=== PATIENT | female | born 1960 | race Caucasian/White ===

== ENCOUNTER 2021-05-31 08:17 | Day surgery (SDC) | payer OTHER ==
[2021-05-30 13:51] LABS: BLOOD UREA NITROGEN,BUN 17 mg/dL (7.0-18.0); CARBON DIOXIDE,CO2 28.4 mmol/L (21.0-32.0); CHLORIDE,CL 106 mmol/L (98-107); GLUCOSE RANDOM 110 mg/dL (74-106); POTASSIUM,K 5.1 mmol/L (3.5-5.1); SODIUM,NA 142 mmol/L (136-145)
[~2021-05-31 08:17] MED LIST: Bupivacaine 0.25% 10 ML SDV ONE; Fluorescein 5 ML Vial ONE; Ketamine 500 mg/10 ML MDV ONE; Lactated Ringers 1,000 ML IV SCH; Methylene Blue 50 MG/10 ML Ampule ONE; Octyl 2-Cyanoacrylate 1 Tube ONE; Propofol 200 MG/20 ML SDV ONE; Sodium Chloride 0.9% 10 ML SDV IV PRN; Sodium Chloride 0.9% 10 ML Syringe FLUSH PRN; Sodium Chloride 0.9% 2.5 ML Syringe FLUSH PRN; ceFAZolin 2 GM in Premix Bag 1 BAG IV ONE; fentaNYL 250 MCG/5 ML SDV ONE
--- NOTE | 2021-05-31 08:28 | PCM.PREANE ---
Preanesthetic Assessment - Procedure Proposed Procedure: Lap assisted vaginal hysterectomy, Bilateral salpingo-oophorectomy, Cystoscopy - Anesthesia/Transfusion/Family Hx Anesthesia History: Prior Anesthesia Without Reaction Transfusion History: No Prior Transfusion(s) - Review of Systems General: No Symptoms Pulmonary: No Symptoms Cardiovascular: No Symptoms (Afib, HTN) Gastrointestinal: No Symptoms Neurological: Headache (h/o tension LAW and c/o one now) Other: Reports: Anxiety - Physical Assessment NPO Status Date: 05/30/21 NPO Status Time: 22:00 Height: 5 ft 6.5 in Weight: 129.274 kg ASA Class: 3 Mental Status: Alert & Oriented x3 Airway Class: Mallampati = 2 Dentition: Reports: Normal Dentition Thyro-Mental Finger Breadths: 3 Mouth Opening Finger Breadths: 3 ROM/Head Extension: Full Lungs: Clear to Auscultation, Normal Respiratory Effort Cardiovascular: Regular Rate, Regular Rhythm - Lab Values: Laboratory Last Values WBC 5.87 K/uL (4.0-11.0) 05/30/21 11:55 RBC 4.81 M/uL (4.30-5.90) 05/30/21 11:55 Hgb 14.1 g/dL (12.0-16.0) 05/30/21 11:55 Hct 41.9 % (36.0-46.0) 05/30/21 11:55 MCV 87.1 fL (80.0-98.0) 05/30/21 11:55 MCH 29.3 pg (27.0-32.0) 05/30/21 11:55 MCHC 33.7 g/dL (31.0-37.0) 05/30/21 11:55 RDW Std Deviation 44.8 fl (28.0-62.0) 05/30/21 11:55 RDW Coeff of Alexsander 14 % (11.0-15.0) 05/30/21 11:55 Plt Count 206 K/uL (150-400) 05/30/21 11:55 MPV 11.10 fL (7.40-12.00) 05/30/21 11:55 Nucleated RBC % 0.0 /100WBC 05/30/21 11:55 Nucleated RBCs # 0 K/uL 05/30/21 11:55 Sodium 142 mmol/L (136-145) 05/30/21 11:55 Potassium 5.1 mmol/L (3.5-5.1) 05/30/21 11:55 Chloride 106 mmol/L (98-107) 05/30/21 11:55 Carbon Dioxide 28.4 mmol/L (21.0-32.0) 05/30/21 11:55 BUN 17 mg/dL (7.0-18.0) 05/30/21 11:55 Creatinine 0.8 mg/dL (0.6-1.0) 05/30/21 11:55 Est Cr Clr Drug Dosing 69.58 mL/min 05/30/21 11:55 Estimated GFR (MDRD) > 60.0 ml/min 05/30/21 11:55 Glucose 110 mg/dL (74-106) H 05/30/21 11:55 Calcium 10.2 mg/dL (8.5-10.1) H 05/30/21 11:55 HCG, Quant 1.0 mIU/mL 05/30/21 11:55 Blood Type A POSITIVE 05/30/21 12:00 Antibody Screen NEGATIVE 05/30/21 12:00 - Allergies Allergies/Adverse Reactions: Allergies Allergy/AdvReac Type Severity Reaction Status Date / Time No Known Allergies Allergy Verified 05/27/21 11:04 - Acknowledgements Anesthesia Type Planned: General Anesthesia Pt an Appropriate Candidate for the Planned Anesthesia: Yes Alternatives and Risks of Anesthesia Discussed w Pt/Guardian: Yes Pt/Guardian Understands and Agrees with Anesthesia Plan: Yes PreAnesthesia Questionnaire HEENT History: Reports: Other (See Below) Other HEENT History: reading glasses Cardiovascular History: Reports: Afib, Hypertension Respiratory History: Reports: None Gastrointestinal History: Reports: None Genitourinary History: Reports: Renal Calculus 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: Musculoskeletal History: Reports: None Neurological History: Reports: Migraines Psychiatric History: Reports: Anxiety Endocrine/Metabolic History: Reports: Obesity/BMI 30+, Osteopenia Hematologic History: Reports: None Immunologic History: Reports: None Oncologic (Cancer) History: Reports: None Dermatologic History: Reports: None - Past Surgical History Head Surgeries/Procedures: Reports: None HEENT Surgical History: Reports: Adenoidectomy, Tonsillectomy Cardiovascular Surgical History: Reports: None Respiratory Surgical History: Reports: None GI Surgical History: Reports: Other (See Below) Other GI Surgeries/Procedures: hx pilonidal cyst excision Female Surgical History: Reports: Breast Biopsy Endocrine Surgical History: Reports: None Neurological Surgical History: Reports: None Musculoskeletal Surgical History: Reports: None Oncologic Surgical History: Reports: None Dermatological Surgical History: Reports: None - SUBSTANCE USE Tobacco Use Status *Q: Never Tobacco User Recreational Drug Use History: No - HOME MEDS Home Medications: Home Meds Ascorbic Acid [Vitamin C] 500 mg PO DAILY 05/27/21 [History] Calcium Carbonate [Calcium] 1 tab PO ASDIRECTED 05/27/21 [History] Cholecalciferol (Vitamin D3) [Vitamin D3] 1,000 mg PO DAILY 05/27/21 [History] Losartan [Cozaar] 50 mg PO DAILY 05/27/21 [History] Maxalt 10 mg PO ASDIRECTED PRN 05/27/21 [History] dilTIAZem HCL [Diltiazem 24Hr ER] 180 mg PO DAILY 05/27/21 [History] Aspirin [Adult Aspirin Regimen] 81 mg PO DAILY 05/28/21 [History] Ibuprofen [Advil] 1 tab PO ASDIRECTED PRN 05/28/21 [History] - CURRENT (IN HOUSE) MEDS Current Meds: Current Medications Lactated Ringer's (Ringers, Lactated) 1,000 mls @ 100 mls/hr IV ASDIRECTED RENATE Sodium Chloride (Sodium Chloride 0.9% 10 Ml Syringe) 10 ml FLUSH ASDIRECTED PRN PRN Reason: Keep Vein Open Sodium Chloride (Sodium Chloride 0.9% 2.5 Ml Syringe) 2.5 ml FLUSH ASDIRECTED PRN PRN Reason: Keep Vein Open Sodium Chloride (Sodium Chloride 0.9% 10 Ml Sdv) 10 ml IV ASDIRECTED PRN PRN Reason: IV Use Discontinued Medications Bupivacaine HCl (Bupivacaine 0.25% 10 Ml Sdv) Confirm Administered Dose 20 ml .ROUTE .STK-MED ONE Stop: 05/31/21 07:34 Fentanyl (Fentanyl 250 Mcg/5 Ml Sdv) Confirm Administered Dose 250 mcg .ROUTE .STK-MED ONE Stop: 05/31/21 07:40 Fluorescein Sodium (Fluorescein 5 Ml Vial) Confirm Administered Dose 5 ml .ROUTE .STK-MED ONE Stop: 05/31/21 07:35 Cefazolin Sodium/Dextrose 2 gm (/ Premix) 50 mls @ 100 mls/hr IV ONETIME ONE Stop: 05/31/21 05:29 Ketamine HCl (Ketamine 500 Mg/10 Ml Mdv) Confirm Administered Dose 500 mg .ROUTE .STK-MED ONE Stop: 05/31/21 07:40 Methylene Blue (Methylene Blue 50 Mg/10 Ml Ampule) Confirm Administered Dose 50 mg .ROUTE .STK-MED ONE Stop: 05/31/21 07:34 Octyl Cyanoacrylate (Octyl 2-Cyanoacrylate 1 Tube) Confirm Administered Dose 1 applic .ROUTE .STK-MED ONE Stop: 05/31/21 07:34 Propofol (Propofol 200 Mg/20 Ml Sdv) Confirm Administered Dose 200 mg .ROUTE .STK-MED ONE Stop: 05/31/21 07:40
[2021-05-31] MEDS ORDERED: Bupivacaine 0.25% 10 ML SDV ONE (08:45)
[2021-05-31] MEDS ORDERED: fentaNYL 250 MCG/5 ML SDV ONE (09:39)
[2021-05-31] MEDS ORDERED: fentaNYL 100 MCG/2 ML SDV ONE ×3 (10:09→11:55)
[2021-05-31] MEDS ORDERED: Morphine 2 MG/ML SYRINGE IVPUSH PRN (10:55)
[2021-05-31] MEDS ORDERED: Ondansetron 4 MG/2 ML SDV IVPUSH PRN ×2 (10:55→13:23)
[2021-05-31] MEDS ORDERED: Albuterol 0.083% 2.5 MG/3 ML Neb Soln NEB PRN (10:55)
[2021-05-31] MEDS ORDERED: Naloxone 0.4 MG/ML SDV IVPUSH PRN (10:55)
[2021-05-31] MEDS ORDERED: Metoclopramide 10 MG/2 ML SDV IVPUSH PRN (10:55)
[2021-05-31] MEDS ORDERED: HYDROmorphone 1 MG/ML Syringe IVPUSH PRN (10:55)
[2021-05-31] MEDS ORDERED: fentaNYL 100 MCG/2 ML SDV IVPUSH PRN (10:55)
[2021-05-31] MEDS ORDERED: Glycopyrrolate 0.2 MG/ML SDV ONE ×2 (11:54→12:51)
[2021-05-31] MEDS ORDERED: Ondansetron 4 MG/2 ML SDV ONE (11:54)
[2021-05-31] MEDS ORDERED: Dexamethasone 4 MG/ML 5 ML MDV ONE (11:54)
[2021-05-31] MEDS ORDERED: Furosemide 40 MG/4 ML VIAL ONE (12:23)
[2021-05-31] MEDS ORDERED: HYDROmorphone 2 MG/ML Syringe ONE ×2 (12:44→17:14)
--- NOTE | 2021-05-31 13:21 | PCM.OPNOTE ---
- General Post-Op/Procedure Note Date of Surgery/Procedure: 05/31/21 Operative Procedure(s): Laparoscopic assisted vaginal hysterectomy, bilateral salpingo-oophorectomy, cytoscopy, adhesiolysis and pelvic washings Findings: Enlarged boggy uterus with dense posterior uterine rectal mesenteric adhesions. Patent appearing ureters bilateral. Pre Op Diagnosis: Complex endometrial hyperplasia with atypia Post-Op Diagnosis: Same Anesthesia Technique: General ET Tube Primary Surgeon: Sarahi Yang Secondary Surgeon: Giulia Zamarripa (consult for bowel adhesions) Continuous Improvement Coach: Giulia Centeno Continuous Improvement Coach: Almita Beaulieu Pathology: Uterus and bilateral fallopian tubes and ovaries with pelvic washings Fluid Replacement, Intraop: 4,000 EBL in mLs: 400 Complications: None known Condition: Stable
[2021-05-31] MEDS ORDERED: Morphine 4 MG/ML Syringe IVPUSH PRN (13:23)
[2021-05-31] MEDS ORDERED: Ketorolac 15 MG/ML SDV IVPUSH PRN (13:23)
[2021-05-31] MEDS ORDERED: Promethazine 25 MG/ML SDV IM PRN (13:23)
[2021-05-31] MEDS ORDERED: Ketorolac 30 MG/ML SDV IVPUSH ONE (13:23)
[2021-05-31] MEDS ORDERED: Acetaminophen/oxyCODONE 325-5 MG Tab PO PRN (13:23)
[2021-05-31] MEDS ORDERED: Belladonna Alkaloids/Opium 16.2-30 MG Supp RECTAL PRN (13:26)
--- NOTE | 2021-05-31 13:27 | PCM.POSTAN ---
POST ANESTHESIA ASSESSMENT - MENTAL STATUS Mental Status: Alert, Oriented - VITAL SIGNS Vital Signs: Last Vital Signs Temp 97.3 F 05/31/21 13:16 Pulse 76 05/31/21 13:22 Resp 10 L 05/31/21 13:22 BP 112/63 05/31/21 13:22 Pulse Ox 94 L 05/31/21 13:22 - RESPIRATORY Respiratory Status: Respiratory Rate WNL, Airway Patent, O2 Saturation Stable - CARDIOVASCULAR CV Status: Pulse Rate WNL, Blood Pressure Stable - GASTROINTESTINAL GI Status: No Symptoms - PAIN Pain Score: 0 - POST OP HYDRATION Hydration Status: Adequate & Stable
--- NOTE | 2021-05-31 13:46 | PCM48HPAN ---
Post Anesthesia Note - EVALUATION WITHIN 48HRS OF ANESTHETIC Vital Signs in Normal Range: Yes Patient Participated in Evaluation: Yes Respiratory Function Stable: Yes Airway Patent: Yes Cardiovascular Function Stable: Yes Hydration Status Stable: Yes Pain Control Satisfactory: Yes Nausea and Vomiting Control Satisfactory: Yes Mental Status Recovered: Yes Vital Signs: Last Vital Signs Temp 97.3 F 05/31/21 13:16 Pulse 54 L 05/31/21 13:37 Resp 11 L 05/31/21 13:37 BP 103/55 L 05/31/21 13:37 Pulse Ox 97 05/31/21 13:37 - COMMENTS/OBSERVATIONS Free Text/Narrative:: Pt doing well post-op. VSS. No apparent anesthetic complications. Dr. aYsh Brown
[2021-05-31] MEDS: Docusate Sodium 100 MG Cap PO SCH (20:38)
[2021-05-31] MEDS: Acetaminophen/oxyCODONE 325-5 MG Tab PO PRN (21:51)
[2021-06-01] MEDS: Acetaminophen/oxyCODONE 325-5 MG Tab PO PRN ×3 (02:27→13:35)
[2021-06-01 07:55] LABS: BLOOD UREA NITROGEN,BUN 11 mg/dL (7.0-18.0); CARBON DIOXIDE,CO2 27.2 mmol/L (21.0-32.0); CHLORIDE,CL 106 mmol/L (98-107); GLUCOSE RANDOM 146 mg/dL (74-106); POTASSIUM,K 4.2 mmol/L (3.5-5.1); SODIUM,NA 139 mmol/L (136-145)
[2021-06-01] MEDS: Docusate Sodium 100 MG Cap PO SCH (08:22)
--- NOTE | 2021-06-01 09:31 | OR ---
SURGEON: Sarahi Yang M.D. DATE OF PROCEDURE: 05/31/2021 PREOPERATIVE DIAGNOSIS: Complex endometrial hyperplasia with atypia. PROCEDURE: Laparoscopic-assisted vaginal hysterectomy with bilateral salpingo-oophorectomy, pelvic washings, and adhesiolysis. ANESTHESIA: General endotracheal anesthesia. ESTIMATED BLOOD LOSS: 400 mL. FLUIDS: 4000 mL of crystalloid. COMPLICATIONS: None known. FINDINGS: Boggy enlarged uterus. Normal-appearing ovaries, fallopian tubes. However, there are adhesions associated with the surrounding mesentery pelvic sidewall with the left tube and ovary. There was also very dense mesenteric rectal adhesions along the posterior aspect of the uterus obliterating the cul-de-sac. CONSULTATIONS: Dr. Giulia Zamarripa, General Surgery. DISPOSITION: The patient to PACU, stable. INDICATION: Luisa is a 60-year-old female who has biopsy-proven complex endometrial hyperplasia with atypia. At this time, we are proceeding with a definitive surgical intervention and perform a hysterectomy with removal of tubes, ovaries, pelvic washings. Risks of procedure were discussed, proper consent obtained. DESCRIPTION OF PROCEDURE: The patient was taken to the operating room where she underwent general endotracheal anesthesia in dorsal supine position. She was then placed in a modified dorsal lithotomy position, was prepped and draped in usual sterile fashion. SCDs to the lower extremities, Estrada to gravity, and backfilled with methylene blue. She received Ancef prophylactically. Time-out was performed after being prepped and draped in the usual sterile fashion. Attention was turned vaginally. A speculum was introduced, anterior lip of cervix was grasped, tented downward and a uterine HUMI manipulator was gently introduced. All instruments other than the uterine manipulator were now removed from the vagina. Attention turned abdominally. Gloves changed. Infraumbilically, 0.25% of Marcaine was introduced. Please see nurse's notes for total amount of local dispensed during the procedure. A 5-mm midline sagittal infraumbilical incision was created, anterior abdominal wall was tented upward. A Veress needle was gently introduced. Saline hanging drop test was performed. Pneumoperitoneum was achieved. The Veress needle was removed. A 5-mm trocar was introduced with laparoscope, peritoneal contents were identified. Left lower quadrant and right lower quadrant 5 mm trocars were introduced after prepping these regions with 0.25% Marcaine and creating 5 mm skin incision. At this juncture, I was able to visualize the uterus which is overall mobile, but there are significant adhesions to the posterior aspect of the uterus that wrapped around more so on the left side of the pelvic sidewall. Most of the adhesions were fairly filmy, but they do obliterate the posterior cul-de-sac. Anteriorly, there was no significant adhesion noted. Given this finding, I did begin adhesiolysis along the left infundibulopelvic ligament. These adhesions were more filmy, we were able to lyse them bluntly and then with the LigaSure. The infundibulopelvic ligament was able to be secured, transected with LigaSure, cauterized, and cut. Was able to secure pedicle with broad ligament down through the round ligament, down through the cardinal ligaments. I was able to perform dissection of the anterior peritoneum along the uterovesical reflection to allow the bladder flap to be created and bladder was mobilized away from lower uterine segment and cervix. Hydrodissection was also performed in this region to further mobilize this tissue away from the lower uterine segment and cervix. Was able to identify a band of tissue with a plane behind it to perform adhesiolysis along the posterior aspect of the uterus. This region was just mesenteric adhesions, however, as I got closer to the uterosacral region, the adhesions were even more dense and not as clear if the rectum was involved. Attention was now turned to performing the right side of the hysterectomy. Once again, the infundibulopelvic ligament was secured with LigaSure, cauterized, and transected down through the broad ligament through the round ligament, through the cardinal ligament including the uterine vessels. Using hydrodissection, I was able to perform adhesiolysis along the posterior aspect of uterus. However, there were 2 areas that were just simply too dense, and therefore, I requested Dr. Giulia Zamarripa from General Surgery assist with evaluation of the adhesions. She presented and then performed further adhesiolysis. Please see her dictation for details. Once it was felt that the region of the posterior cul-de-sac needed to be entered in order to complete hysterectomy had no bowel involvement or rectal involvement, attention was turned to the vaginal aspect of the procedure. The pneumoperitoneum was maintained, so Dr. Zamarripa could monitor my entry into the posterior cul-de-sac. The right angle retractors were placed. Cervix was grasped with Ricardo and tented downward. Cervix was circumscribed with Bovie cautery. The overlying mucosa was bluntly dissected away from underlying peritoneum. Posteriorly, peritoneum was tented downward and entered sharply. They were able to visualize laparoscopically entry with my gloved finger and again was felt to be well away from any rectal involvement. At this juncture, we were able to release the pneumoperitoneum and continue with the remainder of the case vaginally. Anteriorly, the anterior cul-de-sac was entered sharply with Metzenbaum scissors. A Yash was placed to mobilize the bladder away from the operative field. Jl clamp was secured on either side involving the uterosacral ligament, transected, and suture ligated with 2-0 Vicryl. Further pedicle on either side was able to be secured, transected, suture ligated with 2-0 Vicryl. At this juncture, the uterus, fallopian tubes, ovary were able to be removed and handed off to contract technical writer to be further evaluated. The uterosacral ligament was plicated to the vaginal apex on either side. Pedicles were inspected and found to be hemostatic overall. The cuff was closed using 0 Vicryl in continuous running locked fashion. The cuff was inspected, found to be hemostatic. Instruments removed from vagina. Estrada catheter was deflated, Estrada catheter was removed. There had been IV fluorescein with Lasix delivered via the installer metal flooring. The cystoscope was introduced into the bladder using normal saline as distention media. I was able to visualize dome of bladder, which appeared intact, followed by the trigone. The left ureteral orifice followed by the right ureteral orifice were able to be visualized and fluorescein-dyed urine was seen streaming from them helping to ensure ureteral patency. The cystoscope was now removed. Bladder was drained. Estrada catheter was placed. Attention was now turned abdominally once again after changing gloves. Pneumoperitoneum once again achieved. The pelvis was copiously irrigated, suction dried. There was no evidence along the pedicles that there was any bleeding. There was some slight oozing along the region of the mesentery rectal sheath that had to be dissected with the adhesiolysis. Therefore, I was able to place Surgicel along this region and the bart along the pelvis floor. Hemostasis appeared evident at this time. Pneumoperitoneum was now released. The trocars removed under direct visualization. After laparoscope and trocars were removed, the skin edges were reapproximated using 4- 0 Monocryl in subcuticular fashion. I had extended the left lower quadrant port to a 10-mm trocar in order to accommodate a larger suction device. Therefore, the fascia was closed with 0 Vicryl along this incision followed by subcuticular with a 4-0 Monocryl. Sponge and instrument needle count were correct x2. The patient tolerated the procedure well overall. Total time spent with adhesiolysis was approximately 90 minutes. PRATIBHA / ANTONIO /[id number] LILY
--- NOTE | 2021-06-01 10:08 | PCM.SURGPN ---
- General Info Date of Service: 06/01/21 POD#: 1 Functional Status: Reports: Pain Controlled, Tolerating Diet, Ambulating - Review of Systems General: Reports: Fatigue. Denies: Fever, Weakness Pulmonary: Denies: Shortness of Breath Cardiovascular: Denies: Chest Pain, Palpitations, Lightheadedness Gastrointestinal: Reports: Abdominal Pain (mild bloating and discomfort, controlled by pain meds), Flatus (has been passing flatus without discomfort). Denies: Nausea, Vomiting Genitourinary: Reports: No Symptoms Musculoskeletal: Reports: No Symptoms Skin: Reports: No Symptoms Neurological: Reports: No Symptoms Psychiatric: Reports: No Symptoms - Patient Data Vitals - Most Recent: Last Vital Signs Temp 37.1 C 06/01/21 08:00 Pulse 74 06/01/21 08:00 Resp 16 06/01/21 08:00 BP 126/74 06/01/21 08:00 Pulse Ox 88 L 06/01/21 08:00 Weight - Most Recent: 129.274 kg I&O - Last 24 Hours: Intake & Output 05/31/21 06/01/21 06/01/21 22:59 06:59 14:59 Intake Total 300 920 Output Total 200 1550 Balance 100 -630 Lab Results Last 24 Hrs: Laboratory Results - last 24 hr 06/01/21 06/01/21 Range/Units 06:54 06:54 WBC 11.09 H (4.0-11.0) K/uL RBC 3.76 L (4.30-5.90) M/uL Hgb 11.2 L (12.0-16.0) g/dL Hct 32.6 L (36.0-46.0) % MCV 86.7 (80.0-98.0) fL MCH 29.8 (27.0-32.0) pg MCHC 34.4 (31.0-37.0) g/dL RDW Std Deviation 44.9 (28.0-62.0) fl RDW Coeff of Alexsander 14 (11.0-15.0) % Plt Count 186 (150-400) K/uL MPV 10.90 (7.40-12.00) fL Neut % (Auto) 87.6 H (48.0-80.0) % Lymph % (Auto) 6.7 L (16.0-40.0) % [place] % (Auto) 5.7 (0.0-15.0) % Eos % (Auto) 0.0 (0.0-7.0) % Baso % (Auto) 0.0 (0.0-1.5) % Neut # (Auto) 9.7 H (1.4-5.7) K/uL Lymph # (Auto) 0.7 (0.6-2.4) K/uL [place] # (Auto) 0.6 (0.0-0.8) K/uL Eos # (Auto) 0.0 (0.0-0.7) K/uL Baso # (Auto) 0.0 (0.0-0.1) K/uL Nucleated RBC % 0.0 /100WBC Nucleated RBCs # 0 K/uL Sodium 139 (136-145) mmol/L Potassium 4.2 (3.5-5.1) mmol/L Chloride 106 (98-107) mmol/L Carbon Dioxide 27.2 (21.0-32.0) mmol/L BUN 11 (7.0-18.0) mg/dL Creatinine 0.7 (0.6-1.0) mg/dL Est Cr Clr Drug Dosing 79.52 mL/min Estimated GFR (MDRD) > 60.0 ml/min Glucose 146 H (74-106) mg/dL Calcium 8.8 (8.5-10.1) mg/dL Med Orders - Current: Current Medications Belladonna Alkaloids/Opium (Belladonna Alkaloids/Opium 16.2-30 Mg Supp) 1 supp RECTAL Q4H PRN PRN Reason: Abdominal Pain Docusate Sodium (Docusate Sodium 100 Mg Cap) 100 mg PO BID [facility] Last Admin: 06/01/21 08:22 Dose: 100 mg Documented by: Lactated Ringer's (Ringers, Lactated) 1,000 mls @ 100 mls/hr IV ASDIRECTED [facility] Last Admin: 05/31/21 08:55 Dose: 100 mls/hr Documented by: Ketorolac Tromethamine (Ketorolac 15 Mg/Ml Sdv) 15 mg IVPUSH Q6H PRN PRN Reason: Pain (severe 7-10) Stop: 06/05/21 13:23 Morphine Sulfate (Morphine 4 Mg/Ml Syringe) 4 mg IVPUSH Q2H PRN PRN Reason: Pain (severe 7-10) Ondansetron HCl (Ondansetron 4 Mg/2 Ml Sdv) 4 mg IVPUSH Q6H PRN PRN Reason: Nausea/Vomiting Oxycodone/Acetaminophen (Acetaminophen/Oxycodone 325-5 Mg Tab) 1 tab PO Q4H PRN PRN Reason: Pain (moderate 4-6) Last Admin: 06/01/21 08:22 Dose: 1 tab Documented by: Oxycodone/Acetaminophen (Acetaminophen/Oxycodone 325-5 Mg Tab) 2 tab PO Q4H PRN PRN Reason: Pain (moderate 4-6) Promethazine HCl (Promethazine 25 Mg/Ml Sdv) 25 mg IM Q6H PRN PRN Reason: Nausea/Vomiting Sodium Chloride (Sodium Chloride 0.9% 10 Ml Syringe) 10 ml FLUSH ASDIRECTED PRN PRN Reason: Keep Vein Open Sodium Chloride (Sodium Chloride 0.9% 2.5 Ml Syringe) 2.5 ml FLUSH ASDIRECTED PRN PRN Reason: Keep Vein Open Sodium Chloride (Sodium Chloride 0.9% 10 Ml Sdv) 10 ml IV ASDIRECTED PRN PRN Reason: IV Use Discontinued Medications Albuterol (Albuterol 0.083% 2.5 Mg/3 Ml Neb Soln) 2.5 mg NEB ONETIME PRN PRN Reason: Wheezing Bupivacaine HCl (Bupivacaine 0.25% 10 Ml Sdv) Confirm Administered Dose 20 ml .ROUTE .STK-MED ONE Stop: 05/31/21 07:34 Bupivacaine HCl (Bupivacaine 0.25% 10 Ml Sdv) Confirm Administered Dose 10 ml .ROUTE .STK-MED ONE Stop: 05/31/21 08:46 Dexamethasone (Dexamethasone 4 Mg/Ml 5 Ml Mdv) Confirm Administered Dose 20 mg .ROUTE .STK-MED ONE Stop: 05/31/21 11:55 Droperidol (Droperidol 5 Mg/2 Ml Sdv) 0.625 mg IVPUSH ONETIME PRN PRN Reason: Nausea/Vomiting Fentanyl (Fentanyl 250 Mcg/5 Ml Sdv) Confirm Administered Dose 250 mcg .ROUTE .STK-MED ONE Stop: 05/31/21 07:40 Fentanyl (Fentanyl 250 Mcg/5 Ml Sdv) Confirm Administered Dose 250 mcg .ROUTE .STK-MED ONE Stop: 05/31/21 09:40 Fentanyl (Fentanyl 100 Mcg/2 Ml Sdv) Confirm Administered Dose 100 mcg .ROUTE .STK-MED ONE Stop: 05/31/21 10:10 Fentanyl (Fentanyl 100 Mcg/2 Ml Sdv) Confirm Administered Dose 100 mcg .ROUTE .STK-MED ONE Stop: 05/31/21 10:49 Fentanyl (Fentanyl 100 Mcg/2 Ml Sdv) 50 mcg IVPUSH Q5M PRN PRN Reason: Pain (mild 1-3) Fentanyl (Fentanyl 100 Mcg/2 Ml Sdv) Confirm Administered Dose 100 mcg .ROUTE .STK-MED ONE Stop: 05/31/21 11:56 Fluorescein Sodium (Fluorescein 5 Ml Vial) Confirm Administered Dose 5 ml .ROUTE .STK-MED ONE Stop: 05/31/21 07:35 Furosemide (Furosemide 40 Mg/4 Ml Vial) Confirm Administered Dose 40 mg .ROUTE .STK-MED ONE Stop: 05/31/21 12:24 Glycopyrrolate (Glycopyrrolate 0.2 Mg/Ml Sdv) Confirm Administered Dose 0.4 mg .ROUTE .STK-MED ONE Stop: 05/31/21 11:55 Glycopyrrolate (Glycopyrrolate 0.2 Mg/Ml Sdv) Confirm Administered Dose 0.8 mg .ROUTE .STK-MED ONE Stop: 05/31/21 12:52 Hydromorphone HCl (Hydromorphone 1 Mg/Ml Syringe) 1 mg IVPUSH Q10M PRN PRN Reason: Pain (moderate 4-6) Hydromorphone HCl (Hydromorphone 2 Mg/Ml Syringe) Confirm Administered Dose 2 mg .ROUTE .STK-MED ONE Stop: 05/31/21 12:45 Hydromorphone HCl (Hydromorphone 2 Mg/Ml Syringe) Confirm Administered Dose 2 mg .ROUTE .STK-MED ONE Stop: 05/31/21 17:15 Cefazolin Sodium/Dextrose 2 gm (/ Premix) 50 mls @ 100 mls/hr IV ONETIME ONE Stop: 05/31/21 05:29 Last Admin: 05/31/21 15:47 Dose: Not Given Documented by: Cefazolin Sodium/Dextrose (Ancef 2 Gm/50 Ml) Confirm Administered Dose 50 mls @ as directed .ROUTE .STK-MED ONE Stop: 05/31/21 09:38 Acetaminophen (Ofirmev 1000 Mg/100 Ml) Confirm Administered Dose 100 mls @ as directed .ROUTE .STK-MED ONE Stop: 05/31/21 16:51 Ketamine HCl (Ketamine 500 Mg/10 Ml Mdv) Confirm Administered Dose 500 mg .ROUTE .STK-MED ONE Stop: 05/31/21 07:40 Ketorolac Tromethamine (Ketorolac 30 Mg/Ml Sdv) 15 mg IVPUSH ONETIME ONE Stop: 05/31/21 13:24 Last Admin: 05/31/21 14:47 Dose: 15 mg Documented by: Methylene Blue (Methylene Blue 50 Mg/10 Ml Ampule) Confirm Administered Dose 50 mg .ROUTE .STK-MED ONE Stop: 05/31/21 07:34 Metoclopramide HCl (Metoclopramide 10 Mg/2 Ml Sdv) 10 mg IVPUSH ONETIME PRN PRN Reason: Nausea/Vomiting Morphine Sulfate (Morphine 2 Mg/Ml Syringe) 2 mg IVPUSH Q10M PRN PRN Reason: Pain (severe 7-10) Naloxone HCl (Naloxone 0.4 Mg/Ml Sdv) 0.1 mg IVPUSH ASDIRECTED PRN PRN Reason: Respiratory Depression Octyl Cyanoacrylate (Octyl 2-Cyanoacrylate 1 Tube) Confirm Administered Dose 1 applic .ROUTE .STK-MED ONE Stop: 05/31/21 07:34 Ondansetron HCl (Ondansetron 4 Mg/2 Ml Sdv) 4 mg IVPUSH ONETIME PRN PRN Reason: Nausea/Vomiting Ondansetron HCl (Ondansetron 4 Mg/2 Ml Sdv) Confirm Administered Dose 4 mg .ROUTE .STK-MED ONE Stop: 05/31/21 11:55 Propofol (Propofol 200 Mg/20 Ml Sdv) Confirm Administered Dose 200 mg .ROUTE .STK-MED ONE Stop: 05/31/21 07:40 Vecuronium Quinter (Vecuronium 10 Mg Vial) Confirm Administered Dose 20 mg .R OUTE .STK-MED ONE Stop: 05/31/21 11:55 - Exam Wound/Incisions: Healing Well, Dressing Dry and Intact General: Alert, Oriented Lungs: Normal Respiratory Effort Cardiovascular: Regular Rate, Regular Rhythm GI/Abdominal Exam: Normal Bowel Sounds, Soft, No Distention. No: Guarding Extremities: Pedal Edema (trace pedal edema). No: Ghazal's Sign Skin: Warm, Dry, Intact Neurological: No New Focal Deficit Psy/Mental Status: Alert, Normal Affect, Normal Mood Sepsis Event Note - Evaluation Sepsis Screening Result: No Definite Risk - Focused Exam Vital Signs: Vital Signs Temp Pulse Resp BP Pulse Ox 06/01/21 08:00 37.1 C 74 16 126/74 88 L 06/01/21 02:24 36.8 C 87 15 132/83 92 L 06/01/21 00:43 91 L 05/31/21 23:20 91 L 05/31/21 23:19 36.6 C 71 16 132/68 88 L - Problem List & Annotations (1) Status post hysterectomy SNOMED Code(s): 126030165, 395670396, 098274713 Code(s): Z90.710 - ACQUIRED ABSENCE OF BOTH CERVIX AND UTERUS Status: Acute Current Visit: Yes (2) Complex endometrial hyperplasia with atypia SNOMED Code(s): 786961271 Code(s): N85.02 - ENDOMETRIAL INTRAEPITHELIAL NEOPLASIA [EIN] Status: Acute Current Visit: Yes - Problem List Review Problem List Initiated/Reviewed/Updated: Yes - My Orders Last 24 Hours: Active Orders 24 hr Category Date Time Status Patient Status [ADT] Routine ADT 05/31/21 13:23 Active Antiembolic Devices [RC] PER UNIT ROUTINE Care 05/31/21 13:23 Active May Shower [RC] ASDIRECTED Care 05/31/21 13:23 Active Notify Provider Intake and Out [RC] ASDIRECTED Care 05/31/21 13:23 Active Notify Provider Vital Signs [RC] ASDIRECTED Care 05/31/21 13:23 Active Overnight Pulse Oximetry [RC] Click to Edit Care 05/31/21 10:55 Active Oxygen Therapy [RC] ASDIRECTED Care 05/31/21 13:23 Active RT Aerosol Therapy [RC] ASDIRECTED Care 05/31/21 10:55 Active RT BiPAP/CPAP [RC] ASDIRECTED Care 05/31/21 10:55 Active RT Incentive Spirometry [RC] Q2HWA Care 05/31/21 13:23 Active Ready for Discharge [RC] PER UNIT ROUTINE Care 06/01/21 10:03 Ordered Up With Assistance [RC] PER UNIT ROUTINE Care 05/31/21 13:23 Active Up ad Ashley [RC] PER UNIT ROUTINE Care 05/31/21 13:23 Active Urinary Catheter Removal [RC] Per Unit Routine Care 05/31/21 13:23 Active Vital Signs [RC] PER UNIT ROUTINE Care 05/31/21 13:23 Active Vital Signs [RC] Q5M Care 05/31/21 10:55 Active Regular Diet [DIET] Diet 05/31/21 Dinner Active Acetaminophen/oxyCODONE [Percocet 325-5 MG] Med 05/31/21 13:23 Active 1 tab PO Q4H PRN Acetaminophen/oxyCODONE [Percocet 325-5 MG] Med 05/31/21 13:23 Active 2 tab PO Q4H PRN Belladonna/Opium [B & O Supprettes No. 15A] Med 05/31/21 13:26 Active 1 supp RECTAL Q4H PRN Docusate Sodium [Colace] Med 05/31/21 21:00 Active 100 mg PO BID Ketorolac [Toradol] Med 05/31/21 13:23 Active 15 mg IVPUSH Q6H PRN Morphine Med 05/31/21 13:23 Active 4 mg IVPUSH Q2H PRN Ondansetron [Zofran] Med 05/31/21 13:23 Active 4 mg IVPUSH Q6H PRN Promethazine [Phenergan] Med 05/31/21 13:23 Active 25 mg IM Q6H PRN Perineal Care [OM.PC] Per Unit Routine Oth 05/31/21 13:23 Ordered Peripheral IV Discontinue [OM.PC] Routine Oth 05/31/21 13:23 Ordered Pulse Oximetry Continuous Monitoring [OM.PC] Routine Oth 05/31/21 10:55 Ordered Sequential Compression Device [OM.PC] Per Unit Routine Oth 05/31/21 13:23 Ordered Resuscitation Status Routine Resus Stat 05/31/21 13:23 Ordered Medication Orders Belladonna Alkaloids/Opium (Belladonna Alkaloids/Opium 16.2-30 Mg Supp) 1 supp RECTAL Q4H PRN PRN Reason: Abdominal Pain Docusate Sodium (Docusate Sodium 100 Mg Cap) 100 mg PO BID [facility] Last Admin: 06/01/21 08:22 Dose: 100 mg Documented by: Admin: 05/31/21 20:38 Dose: 100 mg Documented by: EDWAR Lactated Ringer's (Ringers, Lactated) 1,000 mls @ 100 mls/hr IV ASDIRECTED [facility] Last Admin: 05/31/21 08:55 Dose: 100 mls/hr Documented by: MEG Ketorolac Tromethamine (Ketorolac 15 Mg/Ml Sdv) 15 mg IVPUSH Q6H PRN PRN Reason: Pain (severe 7-10) Stop: 06/05/21 13:23 Morphine Sulfate (Morphine 4 Mg/Ml Syringe) 4 mg IVPUSH Q2H PRN PRN Reason: Pain (severe 7-10) Ondansetron HCl (Ondansetron 4 Mg/2 Ml Sdv) 4 mg IVPUSH Q6H PRN PRN Reason: Nausea/Vomiting Oxycodone/Acetaminophen (Acetaminophen/Oxycodone 325-5 Mg Tab) 1 tab PO Q4H PRN PRN Reason: Pain (moderate 4-6) Last Admin: 06/01/21 08:22 Dose: 1 tab Documented by: Admin: 06/01/21 02:27 Dose: 1 tab Documented by: Admin: 05/31/21 21:51 Dose: 1 tab Documented by: EDWAR Oxycodone/Acetaminophen (Acetaminophen/Oxycodone 325-5 Mg Tab) 2 tab PO Q4H PRN PRN Reason: Pain (moderate 4-6) Promethazine HCl (Promethazine 25 Mg/Ml Sdv) 25 mg IM Q6H PRN PRN Reason: Nausea/Vomiting Sodium Chloride (Sodium Chloride 0.9% 10 Ml Syringe) 10 ml FLUSH ASDIRECTED PRN PRN Reason: Keep Vein Open Sodium Chloride (Sodium Chloride 0.9% 2.5 Ml Syringe) 2.5 ml FLUSH ASDIRECTED PRN PRN Reason: Keep Vein Open Sodium Chloride (Sodium Chloride 0.9% 10 Ml Sdv) 10 ml IV ASDIRECTED PRN PRN Reason: IV Use - Assessment Assessment (Free Text/Narrative):: POD 1 status post LAVH/BSO/pelvic washings and adhesiolysis - Plan Plan (Free Text/Narrative):: Patient has not ambulated much yet--encouraged her to do so this morning. Labs and VS are reassuring. She is passing flatus. Pain is well controlled. She is ready to go home later this morning once diaz is removed and she is able to void. Discharge instructions reviewed. Follow up at [facility] 2 and 6 weeks. Discharge to home after able to void.
== END 2021-06-01 14:05 | disposition home or self-care (01) ==
LOC: MW.SDS 08:17 → MW.MS 14:15 → MW.SDS 06-01 14:05
PROVIDERS: ATTEND Obstetrics & Gynecology
DX: C54.1 Malignant neoplasm of endometrium (principal); D25.9 Leiomyoma of uterus, unspecified; N73.6 Female pelvic peritoneal adhesions (postinfective); I10 Essential (primary) hypertension; I48.91 Unspecified atrial fibrillation; G43.909 Migraine, unspecified, not intractable, without status migrainosus; Z79.899 Other long term (current) drug therapy; Z98.890 Other specified postprocedural states; Z79.82 Long term (current) use of aspirin; Z79.01 Long term (current) use of anticoagulants
CPT/HCPCS: 00944; 36415; 80048; 84702; 85025; 85027; 86850; 86900; 86901; 88104; 88307; A9270-GY; J0131; J0690; J1100; J1170; J1885; J1940; J2405; J2704; J3010; J3490; J7030; J7120